=== PATIENT | male | born 1980 | race American Indian/Alaskan Native ===

== ENCOUNTER 2018-03-14 18:14 | Emergency (ER) | payer SELFPAY ==
[2018-03-14 18:38] VITALS: BP 152/82
[2018-03-14] MEDS ORDERED: TESSALON PERLES PO ONE (20:27)
[2018-03-14] MEDS ORDERED: IBUPROFEN PO ONE (20:27)
--- NOTE | 2018-03-14 20:58 | XRay Report ---
FINAL REPORT EXAM: XR CHEST ROUTINE 2V HISTORY: cough TECHNIQUE: Two view chest PA and lateral PRIORS: None. FINDINGS: Cardiac and mediastinal contours are unremarkable. No focal pulmonary infiltrate is identified. No pleural fluid collection seen. Pulmonary vasculature is unremarkable. IMPRESSION: Negative two-view chest
--- NOTE | 2018-03-14 22:01 | Emergency Department Report ---
- General Chief Complaint: Chest Pain Stated Complaint: FLU LIKE Time Seen by Provider: 03/14/18 20:27 Source: patient Mode of arrival: Ambulatory Limitations: No Limitations - History of Present Illness Initial Comments: This is a 38-year-old male nontoxic, well nourished in appearance, no acute signs of distress presents to the ED with c/o of productive cough, subjective fever, chills, body aches, rhinorrhea, nasal congestion x3 days. Patient describes productive cough as yellow mucus production. Patient denies any sick contact. Patient denies any recent travels, long car, recent hospital stays. Patient denies any calf pain or calf tenderness. Patient denies any chest pain, short of breath, fever, chills, nausea, vomiting, hemoptysis, numbness, tingling, headache or stiff neck. Patient denies any allergies or PMH. MD Complaint: fever, cough, rhinorrhea, nasal congestion -: days(s) (3) Severity: mild Severity scale (0 -10): 8 Quality: aching Consistency: constant Improves With: nothing Worsens With: nothing Associated Symptoms: fever, chills, rhinorrhea, nasal congestion, cough. denies: myalgias, diaphoresis, headache, sore throat, stiff neck, chest pain, shortness of breath, abdominal pain, nausea, vomiting, diarrhea, dysuria, rash, confusion, right sweats, weight loss, epistaxis, hoarseness, ear pain Treatments Prior to Arrival: none - Related Data Previous Rx's Medication Instructions Recorded Last Taken Type Azithromycin [Zithromax Z-ALENA] 250 mg PO DAILY #6 tablet 03/14/18 Unknown Rx Benzonatate [Tessalon Perle] 100 mg PO Q8H PRN #20 capsule 03/14/18 Unknown Rx Ibuprofen [Motrin] 600 mg PO Q8H PRN #20 tablet 03/14/18 Unknown Rx Allergies Allergy/AdvReac Type Severity Reaction Status Date / Time No Known Allergies Allergy Unverified 03/14/18 18:34 ED Review of Systems ROS: Stated complaint: FLU LIKE Other details as noted in HPI Constitutional: chills, fever Eyes: denies: eye pain, eye discharge, vision change ENT: congestion. denies: ear pain, throat pain Respiratory: cough. denies: shortness of breath, wheezing Cardiovascular: denies: chest pain, palpitations Endocrine: no symptoms reported Gastrointestinal: denies: abdominal pain, nausea, diarrhea Genitourinary: denies: urgency, dysuria Musculoskeletal: denies: back pain, joint swelling, arthralgia Skin: denies: rash, lesions Neurological: denies: headache, weakness, paresthesias Psychiatric: denies: anxiety, depression Hematological/Lymphatic: denies: easy bleeding, easy bruising ED Past Medical Hx - Past Medical History Previous Medical History?: No - Surgical History Past Surgical History?: No - Social History Smoking Status: Never Smoker Substance Use Type: None - Medications Home Medications: Home Medications Medication Instructions Recorded Confirmed Last Taken Type Azithromycin [Zithromax Z-ALENA] 250 mg PO DAILY #6 tablet 03/14/18 Unknown Rx Benzonatate [Tessalon Perle] 100 mg PO Q8H PRN #20 capsule 03/14/18 Unknown Rx Ibuprofen [Motrin] 600 mg PO Q8H PRN #20 tablet 03/14/18 Unknown Rx ED Physical Exam - General Limitations: No Limitations General appearance: alert, in no apparent distress - Head Head exam: Present: atraumatic, normocephalic - Eye Eye exam: Present: normal appearance - Neck Neck exam: Present: normal inspection, full ROM. Absent: tenderness, meningismus, lymphadenopathy - Respiratory Respiratory exam: Present: normal lung sounds bilaterally. Absent: respiratory distress, wheezes, rales, rhonchi, stridor, chest wall tenderness, accessory muscle use, decreased breath sounds, prolonged expiratory - Cardiovascular Cardiovascular Exam: Present: regular rate, normal rhythm, normal heart sounds. Absent: bradycardia, tachycardia, irregular rhythm, systolic murmur, diastolic murmur, rubs, gallop - Extremities Exam Extremities exam: Present: normal inspection, full ROM, normal capillary refill - Back Exam Back exam: Present: normal inspection, full ROM. Absent: tenderness, CVA tenderness (R), CVA tenderness (L), muscle spasm, paraspinal tenderness, vertebral tenderness, rash noted - Neurological Exam Neurological exam: Present: alert, oriented X3 - Psychiatric Psychiatric exam: Present: normal affect, normal mood - Skin Skin exam: Present: warm, dry, intact, normal color. Absent: rash ED Course Vital Signs 03/14/18 03/14/18 18:20 20:44 Temperature 98.7 F Pulse Rate 90 Respiratory 18 20 Rate Blood Pressure 152/82 [Right] O2 Sat by Pulse 100 Oximetry - Reevaluation(s) Reevaluation #1: 03/14/18 22:00 Patient is speaking in full sentences with no signs of distress noted. ED Medical Decision Making - Medical Decision Making This is a 38-year-old male that presents with bronchitis. Patient is stable and was examined by me. Chest x-ray has been obtained and dictated by radiologist with normal exam. Patient is notified of x-ray results with no questions noted. Due to patient having symptoms of upper respiratory infection and worsening I will treat patient empirically with zpak. Infuenza swab negative. Patient was instructed to increase hydration, rest and take Motrin for fever episodes. Patient received motrin and tesslone perrls in the ED. Vitals stable. Patient is nonfebrile and normal heart rate. Patient was instructed Follow-up with a primary care doctor in 3-5 days or if symptoms worsen and continue return to emergency room as soon as possible. At time time of discharge, the patient does not seem toxic or ill in appearance. No acute signs of distress noted. Patient agrees to discharge treatment plan of care. No further questions noted by the patient. Critical care attestation.: If time is entered above; I have spent that time in minutes in the direct care of this critically ill patient, excluding procedure time. ED Disposition Clinical Impression: Bronchitis Disposition: DC-01 TO HOME OR SELFCARE Is pt being admited?: No Does the pt Need Aspirin: No Condition: Stable Instructions: Acute Bronchitis (ED) Additional Instructions: Follow-up with a primary care doctor in 3-5 days or if symptoms worsen and continue return to emergency room as soon as possible. Prescriptions: Azithromycin [Zithromax Z-ALENA] 250 mg PO DAILY #6 tablet Benzonatate [Tessalon Perle] 100 mg PO Q8H PRN #20 capsule PRN Reason: Cough Ibuprofen [Motrin] 600 mg PO Q8H PRN #20 tablet PRN Reason: Pain Referrals: PRIMARY CAREMD [Referring] - 3-5 Days BASHIR BROWN MD [Staff Physician] - 3-5 Days [facility] [Outside] - 3-5 Days [facility] [Outside] - 3-5 Days Forms: Work/School Release Form(ED)
== END 2018-03-14 22:05 | disposition home or self-care (01) ==
LOC: ED 18:14
DX: J40 Bronchitis, not specified as acute or chronic (principal)
CPT/HCPCS: 71046; 87400

== ENCOUNTER 2020-05-10 12:36 | Emergency (ER) | payer SELFPAY ==
--- NOTE | 2020-05-10 13:04 | Emergency Department Report ---
<BORIS DAWN - Last Filed: 05/10/20 15:14> ED General Adult HPI - General Chief complaint: Psych Stated complaint: MENTAL HEALTH Time Seen by Provider: 05/10/20 13:03 Source: patient Mode of arrival: Ambulatory Limitations: No Limitations - History of Present Illness Initial comments: Patient is a 40-year-old male with history of schizophrenia presents emergency department for evaluation of auditory hallucinations x4 days. Patient states that voices are saying they are going to harm him. Patient denies recent febrile illness, denies trauma. - Related Data Home Medications Medication Instructions Recorded Confirmed Last Taken No Known Home Medications [No 05/10/20 05/10/20 Unknown Reported Home Medications] Allergies Allergy/AdvReac Type Severity Reaction Status Date / Time No Known Allergies Allergy Verified 05/10/20 12:48 ED Review of Systems Constitutional: denies: chills, fever Eyes: denies: eye pain, eye discharge, vision change ENT: denies: ear pain, throat pain Respiratory: denies: cough, shortness of breath, wheezing Cardiovascular: denies: chest pain, palpitations Endocrine: no symptoms reported Gastrointestinal: denies: abdominal pain, nausea, diarrhea Genitourinary: denies: urgency, dysuria Musculoskeletal: denies: back pain, joint swelling, arthralgia Skin: denies: rash, lesions Neurological: denies: headache, weakness, paresthesias Psychiatric: as per HPI Hematological/Lymphatic: denies: easy bleeding, easy bruising ED Past Medical Hx - Past Medical History Previous Medical History?: Yes Hx Psychiatric Treatment: Yes - Surgical History Past Surgical History?: No - Social History Smoking Status: Current Every Day Smoker Substance Use Type: Alcohol, Marijuana - Medications Home Medications: Home Medications Medication Instructions Recorded Confirmed Last Taken Type No Known Home Medications [No 05/10/20 05/10/20 Unknown History Reported Home Medications] ED Physical Exam - General Limitations: No Limitations General appearance: alert, in no apparent distress - Head Head exam: Present: atraumatic, normocephalic - Eye Eye exam: Present: normal appearance - ENT ENT exam: Present: mucous membranes moist - Neck Neck exam: Present: normal inspection - Respiratory Respiratory exam: Present: normal lung sounds bilaterally. Absent: respiratory distress - Cardiovascular Cardiovascular Exam: Present: regular rate, normal rhythm. Absent: systolic murmur, diastolic murmur, rubs, gallop - GI/Abdominal GI/Abdominal exam: Present: soft, normal bowel sounds - Rectal Rectal exam: Present: deferred - Extremities Exam Extremities exam: Present: normal inspection - Back Exam Back exam: Present: normal inspection - Neurological Exam Neurological exam: Present: alert, oriented X3 - Psychiatric Psychiatric exam: Present: normal affect, normal mood - Skin Skin exam: Present: warm, dry, intact, normal color. Absent: rash ED Medical Decision Making - Lab Data Result diagrams: 05/10/20 13:29 05/10/20 13:29 Labs 05/10/20 05/10/20 05/10/20 13:29 13:29 13:29 WBC 7.7 RBC 5.13 H Hgb 15.2 Hct 45.2 MCV 88 MCH 30 MCHC 34 RDW 13.6 Plt Count 226 Lymph % (Auto) 16.2 [place] % (Auto) 8.6 H Eos % (Auto) 0.6 Baso % (Auto) 0.3 Lymph # (Auto) 1.3 [place] # (Auto) 0.7 Eos # (Auto) 0.0 Baso # (Auto) 0.0 Seg Neutrophils % 74.3 H Seg Neutrophils # 5.8 Sodium 137 Potassium 4.8 Chloride 99.5 Carbon Dioxide 26 Anion Gap 16 BUN 13 Creatinine 1.2 Estimated GFR > 60 BUN/Creatinine Ratio 11 Glucose 94 Calcium 9.2 Salicylates < 0.3 L Acetaminophen 05/10/20 13:29 WBC RBC Hgb Hct MCV MCH MCHC RDW Plt Count Lymph % (Auto) [place] % (Auto) Eos % (Auto) Baso % (Auto) Lymph # (Auto) [place] # (Auto) Eos # (Auto) Baso # (Auto) Seg Neutrophils % Seg Neutrophils # Sodium Potassium Chloride Carbon Dioxide Anion Gap BUN Creatinine Estimated GFR BUN/Creatinine Ratio Glucose Calcium Salicylates Acetaminophen 5.0 L ED Disposition Condition: Stable Referrals: PRIMARY CARE, [Primary Care Provider] - 3-5 Days <TRE WALDEN III - Last Filed: 05/10/20 18:10> ED Review of Systems ROS: Stated complaint: MENTAL HEALTH Other details as noted in HPI ED Course - Reevaluation(s) Reevaluation #1: I received signout from previous physician. The patient has urine pending and needs to be followed for full medical clearance. 05/10/20 16:05 Reevaluation #2: Patient placed on a 1013 due to the mental health signing agent recommendation. I e xamined the patient I agree with the need for 1013. Patient will remain in the ER as an ER hold. 05/10/20 16:57 Reevaluation #3: Patient is medically cleared. Patient's urine is negative. Patient is medically cleared and patient's final disposition will come from our mental health and psychiatry team. Patient is already on a 1013. Patient will remain in the ER as an ER hold until cleared by psychiatry. 05/10/20 18:09 - Consultations Consultation #1: I discussed the case with the mental health signing agent and they recommend a 1013 due to the patient's acute psychosis, paranoid delusions and inability to care for self. Patient placed on 1013. 05/10/20 16:56 ED Medical Decision Making - Lab Data Result diagrams: 05/10/20 13:29 05/10/20 13:29 Critical care attestation.: If time is entered above; I have spent that time in minutes in the direct care of this critically ill patient, excluding procedure time.
[2020-05-10 13:51] LABS: Hematocrit 45.2 % (35.5-45.6); Hemoglobin 15.2 gm/dl (11.8-15.2); Mean Corpuscular HGB Conc 34 % (32-34); Mean Corpuscular Volume 88 fl (84-94); Platelet Count 226 K/mm3 (140-440); Red Blood Count 5.13 M/mm3 (3.65-5.03); Red Cell Distribution Width 13.6 % (13.2-15.2)
[2020-05-10 14:02] LABS: BUN/Creatinine Ratio 11; Blood Urea Nitrogen 13 mg/dL (9-20); Calcium 9.2 mg/dL (8.4-10.2); Hemolysis Index 7
[2020-05-10 14:33] LABS: Basophils % (Auto) 0.3 % (0.0-1.8); Eosinophils % (Auto) 0.6 % (0.0-4.3); Lymphocytes # (Auto) 1.3 K/mm3 (1.2-5.4); Lymphocytes % (Auto) 16.2 % (13.4-35.0); Monocytes # (Auto) 0.7 K/mm3 (0.0-0.8); Monocytes % (Auto) 8.6 % (0.0-7.3)
[2020-05-10 17:13] LABS: Bilirubin,Urine NEG (Negative); Blood,Urine NEG (Negative); Color,Urine Yellow (Yellow); Mucus,Urine FEW /HPF; Protein,Urine <15 mg/dL mg/dL (Negative); RBC,Urine < 1.0 /HPF (0.0-6.0); Urobilinogen,Urine < 2.0 mg/dL (<2.0); WBC,Urine < 1.0 /HPF (0.0-6.0)
[2020-05-10 17:16] LABS: Amphetamine Screen,Urine Negative; Benzodiazepines Screen,Urine Negative; Cocaine Screen,Urine Negative; Methadone Screen,Urine Negative; Opiate Screen,Urine Negative
[2020-05-10 17:28] LABS: Cannabinoid Screen,Urine Positive
[2020-05-10] MEDS ORDERED: ZIPRASIDONE MESYLATE 20 MG VIAL IM ONE ×2 (19:43→19:49)
--- NOTE | 2020-05-11 10:34 | Consultation ---
History of Present Illness - Reason for Consult Consult date: 05/11/20 Reason for consult: psychosis - History of Present Psychiatric Illness Per ED Note: Patient is a 40-year-old male with history of schizophrenia presents emergency department for evaluation of auditory hallucinations x4 days. Patient states that voices are saying they are going to harm him. Patient denies recent febrile illness, denies trauma. Per Sitter: The patient has been paranoid and hallucinating, and was agitated yesterday. Martin Schwarz is a 40y/o patient who is hear for psychosis. He is paranoid. He is responding to internal stimuli. He makes poor eye contact. He is moving from one area of the bed to the next. When asked why was he doing that, the patient says, "I don't feel comfortable right there." He then peeps around and pulls the curtain forward. The patient says he was admitted for hallucinations and states "I think I got a hold of some bad weed." He says "I don't remember what they were saying," when asked. He says he has a history of bipolar and schizophrenia. The patient says he doesn't take any meds and couldn't remember what they were and when he had. He denies any other illicit drug use. He then says "when I was in [place] I took a whole bunch of Adderall to get high." He says he drinks about three beers a day. PAST PSYCHIATRIC HISTORY Diagnoses: Schizophrenia, bipolar. Suicide attempts or Self-harm behavior: Denies Prior psychiatric hospitalizations: Yes Substance Abuse history: THC Previous psychiatric medications tried: none reported Outpatient treatment: Denies PAST MEDICAL HISTORY: None reported Family Psychiatric History: None reported or documented SOCIAL HISTORY Marital Status: Single Living Arrangements: With parents Employment Status: unemployed Access to guns/weapons: none reported Education: High school History of Abuse: none reported Legal History: yes REVIEW OF SYSTEMS Constitutional: Negative for weight loss ENT: Negative for stridor Respiratory: Negative for cough or hemoptysis All other systems reviewed and are negative MENTAL STATUS EXAMINATION General Appearance and Behavior: Age appropriate, good hygiene, wearing appropriate clothes, poor eye contact Cooperation: Participating/engaged, but Guarded Psychomotor Behavior: Psychomotor normal Mood: "okay" Affect and affective range: labile Thought Process: illogical, responding to internal stimuli Thought Content: hallucinations Speech: Normal rate, volume and rhythm Suicidal Ideation: Denies Homicidal Ideation: Denies HI Hallucinations: Auditory Delusions: Paranoid Impulse Control: Impaired Insight and Judgment: Impaired insight and judgment Memory: Limited Attention: Impaired Orientation: Alert, oriented Assessment and Plan (1) Schizophrenia Current Visit: Yes Status: Acute Treatment Plan 1013 Start Risperidone 0.25mg po BID Start Depakote DR 125mg po BID Start Trazodone 50mg po qhs Start Geodon 20mg IM 6h prn agitation Sitter: Defer to primary Medical: Per primary Disposition: Recommend acute psychiatric inpatient treatment Will follow. Thank you for this consult Case staffed with Dr. Brown. Medications and Allergies Allergies Allergy/AdvReac Type Severity Reaction Status Date / Time No Known Allergies Allergy Verified 05/10/20 12:48 Home Medications Medication Instructions Recorded Confirmed Last Taken Type No Known Home Medications [No 05/10/20 05/10/20 Unknown History Reported Home Medications] Mental Status Exam - Vital signs Last Vital Signs Temp 98.0 F 05/11/20 07:49 Pulse 75 05/11/20 07:49 Resp 20 05/11/20 07:49 BP 127/80 05/11/20 07:49 Pulse Ox 99 05/11/20 07:49 Results Result Diagrams: 05/10/20 13:29 05/10/20 13:29 Abnormal lab results 05/10/20 05/10/20 05/10/20 Range/Units 13:29 13:29 13:29 RBC 5.13 H (3.65-5.03) M/mm3 [place] % (Auto) 8.6 H (0.0-7.3) % Seg Neutrophils % 74.3 H (40.0-70.0) % Salicylates < 0.3 L (2.8-20.0) mg/dL Acetaminophen 5.0 L (10.0-30.0) ug/mL All other labs normal.
[2020-05-11] MEDS: DIVALPROEX DR 125 MG TAB PO SCH ×3 (11:08→22:00)
[2020-05-11] MEDS: risperiDONE 0.25 MG TAB PO SCH ×3 (11:08→22:00)
[2020-05-11] MEDS: ZIPRASIDONE MESYLATE 20 MG VIAL IM SCH ×3 (14:13→23:05)
[2020-05-11 21:59] VITALS: BP 122/84
[2020-05-11] MEDS ORDERED: traZODone 50 MG TAB PO SCH (22:00)
[2020-05-12] MEDS: ZIPRASIDONE MESYLATE 20 MG VIAL IM SCH ×3 (05:00→18:10)
[2020-05-12] MEDS: DIVALPROEX DR 125 MG TAB PO SCH (10:27)
[2020-05-12] MEDS: risperiDONE 0.25 MG TAB PO SCH (10:27)
== END 2020-05-12 18:00 ==
LOC: ED 12:36
DX: R44.0 Auditory hallucinations (principal); F17.200 Nicotine dependence, unspecified, uncomplicated; F12.10 Cannabis abuse, uncomplicated; Z79.899 Other long term (current) drug therapy; Z20.822 Contact with and (suspected) exposure to COVID-19
CPT/HCPCS: 36415; 80048; 80307; 81001; 85025; 96372; 99285; J3486; U0003; 80320; G0480

== ENCOUNTER 2020-08-09 12:39 | Emergency (ER) | payer OTHER, SELFPAY ==
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
[2020-08-09] MEDS ORDERED: ZIPRASIDONE MESYLATE 20 MG VIAL IM ONE (13:37)
[2020-08-09] MEDS ORDERED: WATER FOR INJ Sterile (PF) 10 ML ONE (13:44)
[2020-08-09 14:44] LABS: Basophils % (Auto) 0.3 % (0.0-1.8); Eosinophils % (Auto) 0.6 % (0.0-4.3); Hematocrit 44.5 % (35.5-45.6); Hemoglobin 14.6 gm/dl (11.8-15.2); Lymphocytes % (Auto) 12.2 % (13.4-35.0); Mean Corpuscular HGB Conc 33 % (32-34); Mean Corpuscular Volume 88 fl (84-94); Monocytes # (Auto) 0.5 K/mm3 (0.0-0.8); Monocytes % (Auto) 5.6 % (0.0-7.3); Platelet Count 176 K/mm3 (140-440); Red Blood Count 5.04 M/mm3 (3.65-5.03)
[2020-08-09 15:07] LABS: Alanine Aminotransferase 32 units/L (7-56); Albumin 3.8 g/dL (3.9-5); BUN/Creatinine Ratio 12; Blood Urea Nitrogen 13 mg/dL (9-20); Hemolysis Index 5
[2020-08-09 15:51] LABS: Amphetamine Screen,Urine Negative; Benzodiazepines Screen,Urine Negative; Cocaine Screen,Urine Negative; Methadone Screen,Urine Negative; Opiate Screen,Urine Negative
[2020-08-09 16:10] LABS: Bilirubin,Urine NEG (Negative); Blood,Urine NEG (Negative); Color,Urine Yellow (Yellow); Mucus,Urine 1+ /HPF; Protein,Urine <15 mg/dL mg/dL (Negative)
[2020-08-09 16:14] LABS: Cannabinoid Screen,Urine Positive
[2020-08-09 16:16] LABS: WBC,Urine < 1.0 /HPF (0.0-6.0)
--- NOTE | 2020-08-10 11:25 | Consultation ---
History of Present Illness - Reason for Consult Consult date: 08/10/20 Reason for consult: Paranoid Medications and Allergies Allergies Allergy/AdvReac Type Severity Reaction Status Date / Time No Known Allergies Allergy Verified 05/10/20 12:48 Home Medications Medication Instructions Recorded Confirmed Last Taken Type No Known Home Medications [No 05/10/20 08/09/20 Unknown History Reported Home Medications] Mental Status Exam - Vital signs Last Vital Signs Temp 98.0 F 08/10/20 09:01 Pulse 74 08/10/20 09:01 Resp 20 08/10/20 09:01 BP 118/80 08/10/20 09:01 Pulse Ox 100 08/10/20 09:01 Results Result Diagrams: 08/09/20 14:09 08/09/20 14:09 Abnormal lab results 08/09/20 08/09/20 08/09/20 Range/Units 14:09 14:09 14:09 RBC 5.04 H (3.65-5.03) M/mm3 Lymph % (Auto) 12.2 L (13.4-35.0) % Lymph # (Auto) 1.0 L (1.2-5.4) K/mm3 Seg Neutrophils % 81.3 H (40.0-70.0) % Glucose 167 H (75-100) mg/dL Total Protein 5.5 L (6.3-8.2) g/dL Albumin 3.8 L (3.9-5) g/dL Salicylates < 0.3 L (2.8-20.0) mg/dL Acetaminophen (10.0-30.0) ug/mL 08/09/20 Range/Units 14:09 RBC (3.65-5.03) M/mm3 Lymph % (Auto) (13.4-35.0) % Lymph # (Auto) (1.2-5.4) K/mm3 Seg Neutrophils % (40.0-70.0) % Glucose (75-100) mg/dL Total Protein (6.3-8.2) g/dL Albumin (3.9-5) g/dL Salicylates (2.8-20.0) mg/dL Acetaminophen 5.0 L (10.0-30.0) ug/mL All other labs normal.
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
[2020-08-10 20:18] VITALS: BP 120/70
== END 2020-08-11 07:00 ==
LOC: ED 12:39
DX: F20.9 Schizophrenia, unspecified (principal); Z20.822 Contact with and (suspected) exposure to COVID-19; F17.200 Nicotine dependence, unspecified, uncomplicated; F12.10 Cannabis abuse, uncomplicated
CPT/HCPCS: 36415; 80053; 80307; 81001; 84443; 85025; 96372; 99285; J3486; U0003; 80320; G0480